=== PATIENT | female | born 1980 | race Hispanic/Latino ===

== ENCOUNTER 2023-08-02 14:45 | Emergency (ER) | payer BC ==
[~2023-08-02] VITALS: Ht 154.9 cm; Wt 59.0 kg
[2023-08-02] MEDS ORDERED: IBUPROFEN 600 MG TABLET PO ONE (16:00)
[2023-08-02] MEDS ORDERED: FLUORESCEIN SODIUM 1 STRIP STRIP OP SCH (16:00)
[2023-08-02] MEDS ORDERED: TETRACAINE HCL 0.5% 4 ML OPHTH SOLN OP SCH (16:30)
[2023-08-02] MEDS ORDERED: IBUP-2070 PO (16:35)
[2023-08-02] MEDS ORDERED: CILOOO OD (16:35)
[2023-08-02 17:01] VITALS: BP 123/78; PULSE 78; RESP 18; O2SAT 98
== END 2023-08-02 17:02 | disposition home or self-care (01) ==
LOC: EDH 14:45
DX: H53.8 Other visual disturbances (principal); Z88.0 Allergy status to penicillin; Z90.49 Acquired absence of other specified parts of digestive tract
CPT/HCPCS: 99282